=== PATIENT | female | born 1945 | race Caucasian/White ===

== ENCOUNTER 2016-08-02 19:12 | Emergency (ER) | payer OTHER ==
[~2016-08-02] VITALS: Ht 162.6 cm; Wt 66.5 kg
[2016-08-02 19:29] VITALS: Ht 162.6 cm; Wt 66.5 kg
[2016-08-02] MEDS ORDERED: NICARDipine HCL 30 MG CAPSULE PO ONE (21:30)
--- NOTE | 2016-08-02 21:31 | ERD ---
ER Documentation Chief Complaint Date/Time DATE: 08/02/16 TIME: 21:29 Chief Complaint Pt hypertensive since this morning. HPI Patient is a 71-year-old female with hypertension and kidney disease who presents with high blood pressure. The symptoms started this morning. Her blood pressure was initially 158 systolic and then went up to 194. The patient has no symptoms. She denies headache or vomiting. She denies chest pain or shortness of breath. There is no weakness of the arms or legs or slurred speech. The patient does take benazepril for high blood pressure. ROS All systems reviewed and are negative except as per history of present illness. Allergies Allergies: Coded Allergies: No Known Allergy (Unverified , 08/02/16) PMhx/Soc Hx Neurological Disorder: No Hx Respiratory Disorders: No Hx Cardiac Disorders: No Hx Psychiatric Problems: No Hx Miscellaneous Medical Probl: No Hx Alcohol Use: No Hx Substance Use: No Hx Tobacco Use: No Smoking Status: Never smoker FmHx Family History: No diabetes Physical Exam Vitals Vital Signs Date Time Temp Pulse Resp B/P Pulse Ox O2 Delivery O2 Flow Rate FiO2 08/02/16 21:24 97.7 131 20 196/91 99 Room Air 08/02/16 19:29 97.9 116 20 194/91 97 Physical Exam Const: No acute distress Head: Atraumatic Eyes: Normal Conjunctiva ENT: Normal External Ears, Nose and Mouth. Neck: Full range of motion..~ No meningismus. Resp: Clear to auscultation bilaterally Cardio: Regular rate and rhythm, no murmurs Abd: Soft, non tender, non distended. Normal bowel sounds Skin: No petechiae or rashes Back: No midline or flank tenderness Ext: No cyanosis, or edema Neur: Awake and alert, cranial nerves II through XII are intact, strength is 5 out of 5 in all 4 extremities Psych: Normal Mood and Affect Results 24 hrs Current Medications Medications (Trade) Dose Ordered Sig/Stephen Route PRN Reason Start Time Stop Time Status Last Admin Dose Admin Nicardipine HCl (Cardene) 30 mg ONCE ONCE PO 08/02/16 21:30 08/02/16 21:31 Procedures/MDM EKG read by me: Rate/Rhythm: Regular rate and rhythm at a rate of 96 Intervals: Normal Impression: No evidence of ischemia or arrhythmia Patient is a 71-year-old female presents with asymptomatic hypertension. The patient's EKG is normal and shows no signs of ischemia. Her physical exam is normal and there is no stroke symptoms. She has no chest pain, shortness of breath, headache, or vomiting. She is very well-appearing. The patient was given Cardene by mouth for her blood pressure. I believe outpatient management is appropriate. I did recommend close follow-up with the primary doctor within 24 hours for repeat blood pressure check. The patient may require further blood pressure medications as an outpatient. I will leave this up to the primary doctor. Departure Diagnosis: Primary Impression: Hypertension Hypertension type: essential hypertension Qualified Code: I10 - Essential hypertension Condition: Fair Patient Instructions: High Blood Pressure (Hypertension) Referrals: Your doctor Additional Instructions: Llame al doctor MAANA y abby anjali SARTHAK PARA DENTRO DE 1-2 NICE.Dgale a la secretaria que nosotros le instruimos hacer esta sarthak.Avise o llame si ryder condicin se empeora antes de la sarthak. Regresa aqui si peor o no mejor. TORREY LEE MD Aug 02, 2016 21:31
[2016-08-02] MEDS ORDERED: LEVO0.5P (21:32)
[2016-08-02] MEDS ORDERED: keflex (21:32)
[2016-08-02] MEDS ORDERED: SMV40T (21:32)
[2016-08-02] MEDS ORDERED: AZAT50TA24 (21:32)
[2016-08-02] MEDS ORDERED: SULF1TAB31 (21:35)
[2016-08-02] MEDS ORDERED: BENA10TA48 (21:35)
[2016-08-02 22:20] VITALS: BP 143/65; PULSE 112; RESP 18; TEMP 97.8
== END 2016-08-02 22:30 | disposition home or self-care (01) ==
LOC: E/R 19:12
DX: I10 Essential (primary) hypertension (principal)
CPT/HCPCS: 93005; Z7502; Z7610